=== PATIENT | female | born 1960 | race Hispanic/Latino ===

== ENCOUNTER 2019-04-29 18:30 | Emergency (ER) | payer SELFPAY ==
[~2019-04-29] VITALS: Ht 167.6 cm; Wt 79.4 kg
[~2019-04-29 18:30] MED LIST: Z.0.LORTAB 7.5-5001 PO; [UNRECOGNIZED DRUG - OTHER] PO
[2019-04-29] MEDS ORDERED: METOPROLOL TARTRATE 25 MG TAB ONE (18:54)
[2019-04-29] MEDS ORDERED: IBUPROFEN 600 MG TAB ONE (18:56)
[2019-04-29] MEDS ORDERED: IBUPROFEN 600 MG TAB PO NR (19:00)
[2019-04-29] MEDS ORDERED: METOPROLOL TARTRATE 25 MG TAB PO ONE (19:00)
[2019-04-29 19:43] VITALS: BP 148/96
== END 2019-04-29 19:46 | disposition home or self-care (01) ==
LOC: ER 18:30
DX: I10 Essential (primary) hypertension (principal)
CPT/HCPCS: 99283